=== PATIENT | female | born 1990 | race Caucasian/White ===

== ENCOUNTER 2016-10-02 13:17 | Emergency (ER) | payer MEDICAID ==
[~2016-10-02] VITALS: Ht 165.1 cm; Wt 77.3 kg
[~2016-10-02 13:17] MED LIST: ADVIL200 MG PO; AMOXICILLIN 50500 MG PO; CEPHALEXIN500 M1 PO; DOXYCYCLINE 10100 MG PO; FLAGYL250 MG PO; FLAGYL500 MG PO; FLEXERIL 1010 MG/TAB PO; MOTRIN 600600 MG/TAB PO; MOTRIN 800800 MG/TAB PO; NAPROSYN500 MG PO; NO HOME MEDICATIONS; NORCO 325 MG-51 TAB PO; PEN-VEE K500 MG PO; PERCOCET 325 MG1 TA2 PO; PHENERGAN 25 TA25 MG PO; PRENATAL1 TA1 PO; PRENATAL1 TA2 PO; TYLENOL 500MG500 MG PO; TYLENOL W/COD1 UDTAB PO; ULTRAM 50MG TAB50 MG PO; ZOFRAN 4MG T4 MG/TAB PO
[2016-10-02 13:21] VITALS: BP 113/82; PULSE 80; TEMP 98.4
[2016-10-02] MEDS ORDERED: NORCO 325 MG-7.1 TAB PO (14:56)
== END 2016-10-02 15:02 | disposition home or self-care (01) ==
LOC: COL.ER 13:17
DX: S00.83XA Contusion of other part of head, initial encounter (principal); S05.12XA Contusion of eyeball and orbital tissues, left eye, initial encounter; Y04.0XXA Assault by unarmed brawl or fight, initial encounter; Y92.414 Local residential or business street as the place of occurrence of the external cause